=== PATIENT | female | born 1945 | race Caucasian/White ===

== ENCOUNTER 2017-03-16 06:40 | Observation (INO) | payer MEDICARE, MEDICAID ==
[2017-03-16] VITALS (8 sets, daily range): BP systolic 135–195; BP diastolic 66–91; PULSE 68–102; RESP 16–21; TEMP 97.6–98.5; O2SAT 94–100
[~2017-03-16] VITALS: Ht 152.4 cm; Wt 40.0 kg
[2017-03-16] MEDS ORDERED: SODIUM CHLOR 0.9% 1000 ML INJ 1,000 ML IV ONE (07:13)
--- NOTE | 2017-03-16 07:16 | PD ---
HPI Chief Complaint: Cold / Flu Symptoms Time Seen by Provider: 07:13 Travel History International Travel<30 days: No Contact w/Intl Traveler<30days: No Traveled to known affect area: No History of Present Illness HPI 71-year-old female patient presents to the ER today with 6 days' history of fevers, cold symptoms, cough, chest discomfort, malaise, burning on urination and lower abdominal discomfort. She denies any coughing, shortness of breath, chest pains, or any other symptoms. She states that she thinks the symptoms began when she started turning of her old air conditioning on. Modifying Factors: None Associated Signs & Symptoms: Fever, malaise, burning on urination, lower abdominal discomfort, cough, cold symptoms, chest discomfort Risk Factors: None PFSH Past Medical History Medical History: Denies Significant Hx Tetanus Vaccination: Never Vaccinated Influenza Vaccination: No Past Surgical History Abdominal Surgery: Yes (HERNIA REPAIR) Social History Alcohol Use: No Tobacco Use: No Substance Use: No Allergies-Medications (Allergen,Severity, Reaction): Coded Allergies: No Known Allergies (Unverified , 03/16/17) Reported Meds & Prescriptions Reported Meds & Active Scripts Active No Active Prescriptions or Reported Medications Review of Systems Except as stated in HPI: all other systems reviewed are Neg Physical Exam Narrative GENERAL: Well-developed elderly white female patient currently in mild distress. Awake and oriented 3. SKIN: Focused skin assessment warm/dry. HEAD: Atraumatic. Normocephalic. EYES: Pupils equal and round. No scleral icterus. No injection or drainage. ENT: No nasal bleeding or discharge. Mucous membranes pink and moist. NECK: Trachea midline. No JVD. CARDIOVASCULAR: Regular rate and rhythm. No murmur appreciated. RESPIRATORY: No accessory muscle use. Clear to auscultation. Breath sounds equal bilaterally. GASTROINTESTINAL: Abdomen soft, mild suprapubic tenderness without guarding or rebound, nondistended. Hepatic and splenic margins not palpable. MUSCULOSKELETAL: No obvious deformities. No clubbing. No cyanosis. No edema. NEUROLOGICAL: Awake and alert. No obvious cranial nerve deficits. Motor grossly within normal limits. Normal speech. PSYCHIATRIC: Appropriate mood and affect; insight and judgment normal. Data Data Last Documented VS Vital Signs Date Time Temp Pulse Resp B/P Pulse Ox O2 Delivery O2 Flow Rate FiO2 03/16/17 07:17 93 16 169/90 94 Room Air 03/16/17 06:43 98.2 Orders Electrocardiogram (03/16/17 06:46) Complete Blood Count With Diff (03/16/17 07:13) Comprehensive Metabolic Panel (03/16/17 07:13) Lactic Acid Sepsis Protocol (03/16/17 07:13) Urinalysis - C+S If Indicated (03/16/17 07:13) Influenzae A/B Antigen (03/16/17 07:13) Blood Culture (03/16/17 07:13) Legionella Urinary Antigen (03/16/17 07:13) Chest, Single Ap (03/16/17 07:13) Blood Glucose (03/16/17 07:13) Ecg Monitoring (03/16/17 07:13) Iv Access Insert/Monitor (03/16/17 07:13) Oximetry (03/16/17 07:13) Oxygen Administration (03/16/17 07:13) Sodium Chlor 0.9% 1000 Ml Inj (Ns 1000 M (03/16/17 07:13) Ckmb (Isoenzyme) Profile (03/16/17 07:24) Troponin I (03/16/17 07:24) Urine Culture (03/16/17 07:20) CKMB (03/16/17 07:20) CKMB% (03/16/17 07:20) Ns + Kcl 20 Meq Inj (Ns + Kcl 20 Meq Inj (03/16/17 09:15) Potassium Chloride (Kcl) (03/16/17 09:15) Levofloxacin 750 Mg Premix Inj (Levaquin (03/16/17 09:07) Labs Laboratory Tests Test 03/16/17 03/16/17 07:20 07:30 Urine Color LIGHT-YELLOW Urine Turbidity CLEAR Urine pH 7.5 Urine Specific [place] 1.005 Urine Protein NEG mg/dL Urine Glucose (UA) NEG mg/dL Urine Ketones TRACE mg/dL Urine Occult Blood SMALL Urine Nitrite POS Urine Bilirubin NEG Urine Urobilinogen LESS THAN 2.0 MG/DL Urine Leukocyte Esterase TRACE Urine RBC 5 /hpf Urine WBC 2 /hpf Urine Bacteria OCC /hpf Microscopic Urinalysis Comment CATH-CULTURE IND Total Creatine Kinase 352 U/L Creatine Kinase MB 2.9 NG/ML Creatine Kinase MB % 0.8 % Troponin I LESS THAN 0.02 NG/ML White Blood Count 4.9 TH/MM3 Red Blood Count 3.99 MIL/MM3 Hemoglobin 12.1 GM/DL Hematocrit 36.1 % Mean Corpuscular Volume 90.5 FL Mean Corpuscular Hemoglobin 30.4 PG Mean Corpuscular Hemoglobin 33.6 % Concent Red Cell Distribution Width 13.4 % Platelet Count 200 TH/MM3 Mean Platelet Volume 9.1 FL Neutrophils (%) (Auto) 72.5 % Lymphocytes (%) (Auto) 19.5 % Monocytes (%) (Auto) 7.2 % Eosinophils (%) (Auto) 0.2 % Basophils (%) (Auto) 0.6 % Neutrophils # (Auto) 3.5 TH/MM3 Lymphocytes # (Auto) 0.9 TH/MM3 Monocytes # (Auto) 0.4 TH/MM3 Eosinophils # (Auto) 0.0 TH/MM3 Basophils # (Auto) 0.0 TH/MM3 CBC Comment DIFF FINAL Differential Comment Sodium Level 141 MEQ/L Potassium Level 2.7 MEQ/L Chloride Level 105 MEQ/L Carbon Dioxide Level 25.6 MEQ/L Anion Gap 10 MEQ/L Blood Urea Nitrogen 15 MG/DL Creatinine 0.85 MG/DL Estimat Glomerular Filtration 66 ML/MIN Rate Random Glucose 109 MG/DL Lactic Acid Level 1.3 mmol/L Calcium Level 7.9 MG/DL Total Bilirubin 0.6 MG/DL Aspartate Amino Transf 32 U/L (AST/SGOT) Alanine Aminotransferase 25 U/L (ALT/SGPT) Alkaline Phosphatase 52 U/L Total Protein 6.9 GM/DL Albumin 3.1 GM/DL MDM Medical Decision Making Medical Screen Exam Complete: Yes Emergency Medical Condition: Yes Medical Record Reviewed: Yes Interpretation(s) Laboratory Tests Test 03/16/17 03/16/17 07:20 07:30 Urine Ketones TRACE mg/dL (NEG) Urine Occult Blood SMALL (NEG) Urine Nitrite POS (NEG) Urine Leukocyte Esterase TRACE (NEG) Urine RBC 5 /hpf (0-3) Urine Bacteria OCC /hpf (NONE) Total Creatine Kinase 352 U/L (26-192) Troponin I LESS THAN 0.02 NG/ML (0.02-0.05) Red Blood Count 3.99 MIL/MM3 (4.00-5.30) Neutrophils (%) (Auto) 72.5 % (16.0-70.0) Lymphocytes # (Auto) 0.9 TH/MM3 (1.0-4.8) Potassium Level 2.7 MEQ/L (3.5-5.1) Estimat Glomerular Filtration 66 ML/MIN (>89) Rate Random Glucose 109 MG/DL (74-106) Calcium Level 7.9 MG/DL (8.5-10.1) Albumin 3.1 GM/DL (3.4-5.0) Differential Diagnosis Fevers, urinary symptoms, lower abdominal discomfort, malaise, cough, chest discomfortUTI versus sepsis versus pneumonia versus viral syndrome Narrative Course Lab work shows significant hypokalemia and UTI. IV potassium and by mouth potassium was initiated in the ER and IV antibiotics were initiated. At this point, case is discussed with family practice resident service for admission. Diagnosis Primary Impression: Hypokalemia Additional Impression: UTI (urinary tract infection) Admitting Information Admitting Physician Requests: Admit Scripts No Active Prescriptions or Reported Meds Siomara Gibbs MD Mar 16, 2017 07:16
--- NOTE | 2017-03-16 07:55 | RADRPT ---
EXAM DATE/TIME: 03/16/2017 07:33 [facility] COMPARISON: No previous studies available for comparison. INDICATIONS : Fever. MEDICAL HISTORY : None. SURGICAL HISTORY : None. ENCOUNTER: Initial ACUITY: 1 day PAIN SCORE: 0/10 LOCATION: Bilateral chest FINDINGS: A single view of the chest demonstrates the lungs to be symmetrically aerated without evidence of mas s, infiltrate or effusion. The cardiomediastinal contours are unremarkable. There is a dextrocurvatu re of the thoracolumbar region. CONCLUSION: No acute disease. Carlos Diaz MD on March 16, 2017 at 7:53 Board Certified Radiologist. This report was verified electronically.
[2017-03-16 08:07] LABS: AUTOMATED NEUTROPHIL # 3.5 TH/MM3 (1.8-7.7); BASOPHIL % 0.6 % (0.0-2.0); EOSINOPHIL % 0.2 % (0.0-4.0); HEMATOCRIT 36.1 % (35.0-46.0); HEMO FLAGS DIFF FINAL; LYMPH % 19.5 % (9.0-44.0); LYMPHOCYTE # 0.9 TH/MM3 (1.0-4.8); MEAN CELL VOLUME 90.5 FL (80.0-100.0); MEAN CORPUSCULAR HEMOGLOBIN 30.4 PG (27.0-34.0); MEAN CORPUSCULAR HGB CONC 33.6 % (32.0-36.0); MONO % 7.2 % (0.0-8.0); NEUT % 72.5 % (16.0-70.0); PLATELET COUNT 200 TH/MM3 (150-450); RED BLOOD COUNT 3.99 MIL/MM3 (4.00-5.30); RED CELL DISTRIBUTION WIDTH 13.4 % (11.6-17.2); WHITE BLOOD COUNT 4.9 TH/MM3 (4.0-11.0)
[2017-03-16 08:08] LABS: BACTERIA, URINE OCC /hpf; BLOOD, URINE SMALL (NEG); GLUCOSE,URINE NEG (NEG); KETONE, URINE TRACE mg/dL (NEG); PH, URINE 7.5 (5.0-8.5); URINE COLOR LIGHT-YELLOW (YELLW/STRAW)
[2017-03-16 08:09] LABS: COMMENT (UR) CATH-CULTURE IND; CULTURE IF INDICATED CATH CULTURE IND; NITRITE,URINE POS (NEG)
[2017-03-16 08:29] LABS: CREATINE KINASE 352 U/L (26-192)
[2017-03-16 08:33] LABS: ALKALINE PHOSPHATASE 52 U/L (45-117); ALT (GPT) 25 U/L (10-53); ANION GAP 10 MEQ/L (5-15); AST (GOT) 32 U/L (15-37); BICARBONATE 25.6 MEQ/L (21.0-32.0); BLOOD UREA NITROGEN 15 MG/DL (7-18); CHLORIDE 105 MEQ/L (98-107); GLOMERULAR FILTRATION RATE 66 ML/MIN (>89); SODIUM (NA) 141 MEQ/L (136-145); TOTAL BILIRUBIN ADULT 0.6 MG/DL (0.2-1.0)
[2017-03-16 08:34] LABS: POTASSIUM 2.7 MEQ/L (3.5-5.1)
[2017-03-16 08:42] LABS: CKMB 2.9 NG/ML (0.5-3.6)
[2017-03-16] MEDS ORDERED: LEVOFLOXACIN 750 MG PREMIX INJ 150 ML IV STA (09:07)
[2017-03-16] MEDS ORDERED: POTASSIUM CHLORIDE 10 MEQ CONTROLLED RELEASE TAB PO ONE ×2 (09:15→19:15)
[2017-03-16] MEDS ORDERED: NS + KCL 20 MEQ INJ 1,000 ML IV ONE (09:15)
--- NOTE | 2017-03-16 10:10 | HHI.HP ---
HPI Service Family Medicine Primary Care Physician No Primary Care Physician Admission Diagnosis hypokalemia/UTI Diagnoses: International Travel<30 Days: No Contact w/Intl Traveler<30days: No Known Affected Area: No History of Present Illness Ms. Mart is a 71 y/o F with no significant past medical history presenting with fever, cough with SOB, and dysuria. She states that on March 09 she started running a fever up to 101 with a productive cough when she started using her air conditioner in her apartment. Since that time she endorses severe coughing episodes to the point where she felt like she could "pass out." Due to the cough she has started experiencing midsternal chest pain without radiation or diaphoresis. She is also experience some mild shortness of breath due to her constant cough. For her fever she had started taking Tylenol, however her fever did not respond and therefore presented to the ER for further evaluation. Per the ER physician's report she has been complaining of dysuria and lower abdominal discomfort. Nursing staff also notes she has been urinating with increased frequency and urgency since arriving to the ER. However upon the medical team's interview, the patient denies any urinary symptoms at this time including suprapubic tenderness, back pain, dysuria, or urgency. Her only other complaints was multiple episodes of diarrhea since starting Tylenol and a back skin lesion she believes is melanoma. (Guillermo Manzanares MD R1) Review of Systems Constitutional: COMPLAINS OF: Fever, Chills Endocrine: COMPLAINS OF: Polyuria Eyes: DENIES: Blurred vision Ears, nose, mouth, throat: DENIES: Throat pain, Running Nose Respiratory: COMPLAINS OF: Cough, Shortness of breath Cardiovascular: COMPLAINS OF: Chest pain, DENIES: Palpitations Gastrointestinal: COMPLAINS OF: Diarrhea, DENIES: Abdominal pain, Nausea, Vomiting Genitourinary: COMPLAINS OF: Urinary frequency, Urgency, DENIES: Dysuria Musculoskeletal: DENIES: Joint pain Integumentary: COMPLAINS OF: Rash Hematologic/lymphatic: DENIES: Lymphadenopathy Immunologic/allergic: DENIES: Urticaria Neurologic: DENIES: Headache Psychiatric: DENIES: Mood changes (Guillermo Manzanares MD R1) Past Family Social History Past Medical History Denies significant past medical history Past Surgical History R inguinal hernia repair (Guillermo Manzanares MD R1) Allergies: Coded Allergies: No Known Allergies (Unverified , 03/16/17) Family History Mother - emphysema Father - unknown Brother - possible HI, unknown Denies any other significant FMHx Social History Lives at home by herself in [address]. Currently on SSI and unemployed. Smoke - Denies smoking history Alcohol - Occasionally, last drink was couple of weeks ago Illicit Drugs - Denies illicit drugs (Guillermo Manzanares MD R1) Physical Exam Vital Signs Vital Signs Date Time Temp Pulse Resp B/P Pulse Ox O2 Delivery O2 Flow Rate FiO2 03/16/17 07:17 93 16 169/90 94 Room Air 03/16/17 06:43 98.2 102 18 195/91 98 Physical Exam CONSTITUTIONAL/GEN: Well-developed, well-nourished 71-year-old female in NAD. EYES: Conjunctiva normal, PERRLA, EOMI. ENT: Mouth and oropharynx within normal limits. No lower teeth. NECK: Supple. No thyromegaly, LAD, or JVD appreciated LUNGS: Clear to auscultation bilaterally with no CRW. No increased work of breathing. CARDIOVASCULAR: Regular rate and rhythm with no MGR. GI/ABD: Soft, nontender with positive bowel sounds. No organomegaly appreciated. : No CVA tenderness. NEURO: No focal deficits. SKIN: Color normal, no rashes noted. Seborrheic keratoses on back. HEME/LYMPH: No bruising, petechia or significant adenopathy MUSC: Back is normal in appearance. Extremities are normal in appearance. PSYCH/MENTAL STATUS: Alert and oriented x 3. Laboratory Laboratory Tests Test 03/16/17 03/16/17 07:20 07:30 Urine Color LIGHT-YELLOW Urine Turbidity CLEAR Urine pH 7.5 Urine Specific [place] 1.005 Urine Protein NEG Urine Glucose (UA) NEG Urine Ketones TRACE Urine Occult Blood SMALL Urine Nitrite POS Urine Bilirubin NEG Urine Urobilinogen LESS THAN 2.0 Urine Leukocyte Esterase TRACE Urine RBC 5 Urine WBC 2 Urine Bacteria OCC Microscopic Urinalysis Comment CATH-CULTURE IND Total Creatine Kinase 352 Creatine Kinase MB 2.9 Creatine Kinase MB % 0.8 Troponin I LESS THAN 0.02 White Blood Count 4.9 Red Blood Count 3.99 Hemoglobin 12.1 Hematocrit 36.1 Mean Corpuscular Volume 90.5 Mean Corpuscular Hemoglobin 30.4 Mean Corpuscular Hemoglobin 33.6 Concent Red Cell Distribution Width 13.4 Platelet Count 200 Mean Platelet Volume 9.1 Neutrophils (%) (Auto) 72.5 Lymphocytes (%) (Auto) 19.5 Monocytes (%) (Auto) 7.2 Eosinophils (%) (Auto) 0.2 Basophils (%) (Auto) 0.6 Neutrophils # (Auto) 3.5 Lymphocytes # (Auto) 0.9 Monocytes # (Auto) 0.4 Eosinophils # (Auto) 0.0 Basophils # (Auto) 0.0 CBC Comment DIFF FINAL Differential Comment Sodium Level 141 Potassium Level 2.7 Chloride Level 105 Carbon Dioxide Level 25.6 Anion Gap 10 Blood Urea Nitrogen 15 Creatinine 0.85 Estimat Glomerular Filtration 66 Rate Random Glucose 109 Lactic Acid Level 1.3 Calcium Level 7.9 Total Bilirubin 0.6 Aspartate Amino Transf 32 (AST/SGOT) Alanine Aminotransferase 25 (ALT/SGPT) Alkaline Phosphatase 52 Total Protein 6.9 Albumin 3.1 Date/Time Procedure Status Source Growth 03/16/17 07:35 Influenza Types A,B Antigen (NICHOLAS) - Final Complete Nasal Washing NEGATIVE FOR FLU A AND B ANTIGEN.... 03/16/17 07:30 Aerobic Blood Culture Received Blood Peripheral Pending 03/16/17 07:30 Anaerobic Blood Culture Received Blood Peripheral Pending 03/16/17 07:20 Urine Culture Received Urine Catheterized Urine Pending 03/16/17 07:20 Legionella Antigen - Final Complete Urine Clean Catch PRESUMPTIVE NEGATIVE FOR LEGIONELLA P... (Guillermo Manzanares MD R1) Result Diagram: 03/16/1772903/16/17729 Imaging Last 72 hours Impressions Chest X-Ray 03/16/17712 Signed Impressions: Service Date/Time: Thursday, March 16, 2017 07:33 - CONCLUSION: No acute disease. Carlos Diaz MD (Guillermo Manzanares MD R1) Assessment and Plan Assessment and Plan Ms. Mart is a 71 y/o F with no significant past medical history presenting with fever, cough with SOB, and dysuria found to have a UTI and hypokalemia. She will be admitted for observation and medical management of her hypokalemia and UTI. Code Status Full Code Discussed Condition With Dr. Gibbs, ER Physician Dr. Trenton Roach (Guillermo Manzanares MD R1) Attending Attestation Patient seen and examined. Case reviewed and discussed with the resident team. Agree with plan of care as discussed with me and documented in the resident note. (Ngozi Chowdhury MD) Problem List: (1) UTI (urinary tract infection) Status: Acute Plan: Patient presented with fevers, dysuria, and urinary urgency found to have urinalysis concerning for possible UTI. CBC: WBC 4.9 with 72.5 neutrophils UA: Trace ketones, small occult blood, nitrites positive, trace leukocyte esterase, occasional bacteria Urine culture: Pending Urinary catheter inserted per ER staff due to frequency and urgency Strict I/Os Medications: Levofloxacin 750 mg daily (2) Hypokalemia Status: Acute Plan: Patient found to be hypokalemic on complete metabolic panel. CMP: Potassium 2.7, otherwise within normal limits Repeat BMP at 1999 Medications: Normal saline + 20 mEq KCl at 250 mL per hour Potassium 30 mEq once in ER Potassium 40 mEq PO x1 (3) Nutrition, metabolism, and development symptoms Status: Acute Plan: Fluids: 2 L normal saline given in ER, currently tolerating fluids well mouth Diet: Regular diet as tolerated Electrolytes: Hypokalemia as above, continue to monitor Prophylaxis: Tylenol when necessary for fever, constipation regimen, Zofran when necessary for nausea or vomiting, Tessalon when necessary for cough, Imodium when necessary for diarrhea, clonidine when necessary for BP >180/100 (4) No contraindication to deep vein thrombosis (DVT) prophylaxis Status: Acute Plan: Pharmacological DVT prophylaxis held due to probable short hospital stay , medical team will initiate prophylaxis pending longer clinical course SCD/TEDs (Guillermo Manzanares MD R1) Guillermo Manzanares MD R1 Mar 16, 2017 10:10 Ngozi Chowdhury MD Mar 16, 2017 20:32
[2017-03-16] MEDS ORDERED: BISACODYL 10 MG SUPP RECTAL PRN (12:00)
[2017-03-16] MEDS ORDERED: NALOXONE HCL 0.4 MG/ML AMP IV PRN (12:00)
[2017-03-16] MEDS ORDERED: MAGNESIUM HYDROXIDE SUSP 30 ML CUP PO PRN (12:00)
[2017-03-16] MEDS ORDERED: SODIUM CHLORIDE 0.9% FLUSH 10 ML FLUSH IV FLUSH PRN (12:00)
[2017-03-16] MEDS: SODIUM CHLORIDE 0.9% FLUSH 10 ML FLUSH IV FLUSH SCH ×2 (12:00→20:11)
[2017-03-16] MEDS ORDERED: SENNOSIDES 8.6 MG TAB PO PRN (12:00)
[2017-03-16] MEDS ORDERED: ACETAMINOPHEN 325 MG TAB PO PRN (12:00)
[2017-03-16] MEDS ORDERED: ONDANSETRON ODT 4 MG TAB PO PRN (12:00)
[2017-03-16] MEDS ORDERED: LACTULOSE SYRUP 20 GM/30 ML CUP PO PRN (12:00)
--- NOTE | 2017-03-16 12:16 | HHI.FPPN ---
Subjective Remarks Pt. seen, examined and discussed with the medicine team. This is a 71 yo female, previously well until approximately one week ago when she developed a fever with some chills. She turned on the AC and began severe coughing to the point of feeling as though she was going to pass out. cough was productive of sputum. Per ED physician pt. has been complaining of dysuria and lower abdominal discomfort. See H&P for this observation admission for additional historical details. When we speak with the patient, she denies any dysuria, urgency, back pain, suprapubic pain. Wants to go home. Takes no meds, nonsmoker, rare etoh. Lives alone in an apartment, cares for herself She is . Thinks she has a melanoma on her back; hasn't seen a physician in many years. Objective Vitals Vital Signs Date Time Temp Pulse Resp B/P Pulse Ox O2 Delivery O2 Flow Rate FiO2 03/16/17 07:17 93 16 169/90 94 Room Air 03/16/17 06:43 98.2 102 18 195/91 98 Result Diagram: 03/16/1730 03/16/17 0730 Other Results Laboratory Tests Test 03/16/17 03/16/17 07:20 07:30 Urine Ketones TRACE mg/dL Urine Occult Blood SMALL Urine Nitrite POS Urine Leukocyte Esterase TRACE Urine RBC 5 /hpf Urine Bacteria OCC /hpf Total Creatine Kinase 352 U/L Troponin I LESS THAN 0.02 NG/ML Red Blood Count 3.99 MIL/MM3 Neutrophils (%) (Auto) 72.5 % Lymphocytes # (Auto) 0.9 TH/MM3 Potassium Level 2.7 MEQ/L Estimat Glomerular Filtration 66 ML/MIN Rate Random Glucose 109 MG/DL Calcium Level 7.9 MG/DL Albumin 3.1 GM/DL Imaging Last Impressions Chest X-Ray 03/16/17 0713 Signed Impressions: Service Date/Time: Thursday, March 16, 2017 07:33 - CONCLUSION: No acute disease. Carlos Diaz MD Objective Remarks O. CONSTITUTIONAL/GEN: normally nourished, in NAD. EYES: conjunctiva normal, PERRLA, EOMI. ENT: Mouth and pharynx normal. No lower teeth. NECK: supple LUNGS: clear A-P, respiratory effort is normal. CARDIOVASCULAR: RR without murmur or gallop. No significant edema. GI/ABD: soft without masses, without organomegaly. BS + : no CVA tenderness NEURO: No focal deficits. SKIN: color normal, no rashes noted. Seborrheic keratoses on back. HEME/LYMPH: no bruising, petechia or significant adenopathy MUSC: back is normal in appearance. Extremities are normal in appearance. PSYCH/MENTAL STATUS: Alert and oriented x 3. A/P Assessment and Plan 71 yo female with resolving URI, essentially asymptomatic UTI and hypokalemia. Attending Attestation Patient seen and examined. Case reviewed and discussed with the resident team. Agree with plan of care as discussed with me and documented in the resident note. Ngozi Chowdhury MD Mar 16, 2017 12:16
--- NOTE | 2017-03-16 15:55 | EKG ---
Date Performed: 03/16/2017 Time Performed: 06:46:30 PTAGE: 71 years EKG: SINUS TACHYCARDIA BASELINE ARTIFACT INCOMPLETE RIGHT BUNDLE BRANCH BLOCK MODERATE ST DEPRES LEONCIO ABNORMAL ECG NO PREVIOUS TRACING DOCTOR: Jovany Arzola Interpretating Date/Time 03/16/2017 15:53:40
[2017-03-16] MEDS ORDERED: LOPERAMIDE HCL 2 MG CAP PO PRN (18:15)
[2017-03-16] MEDS ORDERED: BENZONATATE 100 MG CAP PO PRN (18:15)
--- NOTE | 2017-03-16 19:11 | HHI.DCPOC ---
Discharge Care Plan Diagnosis: (1) Hypokalemia (2) UTI (urinary tract infection) Goals to Promote Your Health * To prevent worsening of your condition and complications * To maintain your health at the optimal level Directions to Meet Your Goals Take your medications as prescribed Follow your dietary instruction Follow activity as directed Keep your appointments as scheduled Take your immunizations and boosters as scheduled If your symptoms worsen call your PCP, if no PCP go to Urgent Care Center or Emergency Room Smoking is Dangerous to Your Health. Avoid second hand smoke Call the 24-hour hour crisis hotline for domestic abuse at Guillerom Manzanares MD R1 Mar 16, 2017 19:11
[2017-03-16] MEDS ORDERED: LEVA750T9 PO ×2 (19:12→19:14)
[2017-03-16] MEDS ORDERED: cloNIDine HCL 0.1 MG TAB PO PRN (19:15)
[2017-03-16] MEDS ORDERED: hydrOXYzine HCL 25 MG TAB PO PRN (19:30)
[2017-03-16] MEDS ORDERED: ACETAMINOPHEN 500 MG CPLT PO PRN (19:30)
[2017-03-16 19:39] LABS: BICARBONATE 27.2 MEQ/L (21.0-32.0); POTASSIUM 3.2 MEQ/L (3.5-5.1)
[2017-03-16] MEDS: DOCUSATE SODIUM 50 MG/SENNA 8.6 MG TAB PO SCH (20:11)
[2017-03-16 21:03] LABS: MAGNESIUM 1.9 MG/DL (1.5-2.5)
[2017-03-17 01:52] VITALS: BP 164/78; PULSE 67; RESP 16; TEMP 98.4; O2SAT 96
[2017-03-17 05:07] VITALS: BP 132/69; PULSE 74; RESP 19; TEMP 98.4; O2SAT 94
[2017-03-17] MEDS ORDERED: BACT800T5 PO (07:07)
[2017-03-17 07:27] LABS: AUTOMATED NEUTROPHIL # 4.2 TH/MM3 (1.8-7.7); BASOPHIL % 0.5 % (0.0-2.0); EOSINOPHIL # 0.1 TH/MM3 (0-0.4); EOSINOPHIL % 1.2 % (0.0-4.0); HEMATOCRIT 39.2 % (35.0-46.0); HEMO FLAGS DIFF FINAL; LYMPH % 28.3 % (9.0-44.0); LYMPHOCYTE # 1.9 TH/MM3 (1.0-4.8); MEAN CELL VOLUME 89.6 FL (80.0-100.0); MEAN CORPUSCULAR HEMOGLOBIN 30.3 PG (27.0-34.0); MEAN CORPUSCULAR HGB CONC 33.8 % (32.0-36.0); MONO % 6.4 % (0.0-8.0); NEUT % 63.6 % (16.0-70.0); PLATELET COUNT 241 TH/MM3 (150-450); RED BLOOD COUNT 4.37 MIL/MM3 (4.00-5.30); RED CELL DISTRIBUTION WIDTH 13.3 % (11.6-17.2); WHITE BLOOD COUNT 6.6 TH/MM3 (4.0-11.0)
[2017-03-17 07:57] LABS: ALT (GPT) 24 U/L (10-53); ANION GAP 10 MEQ/L (5-15); AST (GOT) 25 U/L (15-37); BICARBONATE 24.1 MEQ/L (21.0-32.0); BLOOD UREA NITROGEN 7 MG/DL (7-18); CHLORIDE 107 MEQ/L (98-107); GLOMERULAR FILTRATION RATE 64 ML/MIN (>89); POTASSIUM 3.2 MEQ/L (3.5-5.1); SODIUM (NA) 141 MEQ/L (136-145)
[2017-03-17 08:00] LABS: ALKALINE PHOSPHATASE 53 U/L (45-117); TOTAL BILIRUBIN ADULT 0.7 MG/DL (0.2-1.0)
[2017-03-17 08:15] VITALS: O2SAT 98
[2017-03-17 08:16] VITALS: BP 137/67; PULSE 83; RESP 18; TEMP 98; O2SAT 95
[2017-03-17] MEDS: SODIUM CHLORIDE 0.9% FLUSH 10 ML FLUSH IV FLUSH SCH (08:34)
[2017-03-17] MEDS: DOCUSATE SODIUM 50 MG/SENNA 8.6 MG TAB PO SCH (08:35)
[2017-03-17] MEDS ORDERED: SULFAMETHOXAZOLE-TRIMETHOPRIM DS 800-160 MG TAB PO SCH (09:00)
[2017-03-17] MEDS ORDERED: LEVOFLOXACIN 750 MG TAB PO SCH (09:00)
[2017-03-17] MEDS ORDERED: POTASSIUM CHLORIDE 10 MEQ CAP PO SCH (09:00)
[2017-03-17] MEDS ORDERED: CIPR5SUS PO (09:48)
--- NOTE | 2017-03-17 09:49 | HHI.FPPN ---
Subjective Remarks Patient seen and examined this morning by medical team. No acute events overnight with VSS. Patient reports she feels "100% better" and is very grateful for the care she has received. She has no complaints this morning and denies any fevers, chills, shortness of breath, chest pain, dysuria, abdominal pain, or calf tenderness. (Guillermo Manzanares MD R1) Objective Vitals Vital Signs Date Time Temp Pulse Resp B/P Pulse Ox O2 Delivery O2 Flow Rate FiO2 03/17/17 08:16 98.0 83 18 137/67 95 03/17/17 08:15 98 21 03/17/17 05:07 98.4 74 19 132/69 94 03/17/17 01:52 98.4 67 16 164/78 96 03/16/17 21:10 98.5 87 18 171/80 96 03/16/17 20:09 96 21 03/16/17 15:40 97.6 75 18 155/72 96 03/16/17 12:18 68 21 135/66 100 Room Air 03/16/17 12:08 98 21 03/16/17 10:00 70 18 152/78 95 Room Air I/O 03/16/17 03/16/17 03/16/17 03/17/17 03/17/17 03/17/17 07:00 15:00 23:00 07:00 15:00 23:00 Output Total 500 ml 750 ml Balance -500 ml -750 ml Output Urine Total 500 ml 750 ml # Voids 1 (Guillermo Manzanares MD R1) Result Diagram: 03/17/17 0638 03/17/17 0638 Objective Remarks CONSTITUTIONAL/GEN: Well-developed, well-nourished 71-year-old female lying in bed in [facility]. HEENT: Atraumatic, normocephalic with EOMI. MMM. No JVD or LAD appreciated LUNGS: Clear to auscultation bilaterally with no CRW. No increased work of breathing. CARDIOVASCULAR: Regular rate and rhythm with no MGR. GI/ABD: Soft, nontender with positive bowel sounds. No organomegaly appreciated. : No CVA tenderness. Schwarz catheter in place with appropriate nonhemorrhagic urine and reservoir. SKIN: Color normal, no rashes noted. Seborrheic keratoses on back. HEME/LYMPH: No bruising, petechia or significant adenopathy MUSC: Back is normal in appearance. Extremities are normal in appearance. PSYCH/MENTAL STATUS: Alert and oriented x 3. (Guillermo Manzanares MD R1) A/P Assessment and Plan Ms. Mart is a 71 y/o F with no significant past medical history presenting with fever, cough with SOB, and dysuria found to have a UTI and hypokalemia. She will be admitted for observation and medical management of her hypokalemia and UTI. Discharge Planning Patient to be discharged home today. (Guillermo Manzanares MD R1) Attending Attestation Patient seen and examined. Case reviewed and discussed with the resident team. Agree with plan of care as discussed with me and documented in the resident note. (Ngozi Chowdhury MD) Problem List: (1) UTI (urinary tract infection) Status: Acute Plan: Patient presented with fevers, dysuria, and urinary urgency found to have urinalysis concerning for possible UTI. CBC: WBC 4.9 with 72.5 neutrophils UA: Trace ketones, small occult blood, nitrites positive, trace leukocyte esterase, occasional bacteria Urine culture: Gram-negative chip Legionella antigen: Negative Blood culture: Negative to date Urinary catheter inserted per ER staff due to frequency and urgency. Schwarz to be removed with voiding trial. Strict I/Os Medications: Levofloxacin 750 mg daily Patient to be discharged home on ciprofloxacin 500 mg by mouth twice a day ( liquid) Follow-up BMP and UA within one week Patient follow-up with PCP in 1 week, given information on [facility] for future follow-up (2) Hypokalemia Status: Acute Plan: Patient found to be hypokalemic on complete metabolic panel. CMP 03/17:3.2 Medications: Normal saline + 20 mEq KCl at 250 mL per hour Potassium 30 mEq once in ER Potassium 40 mEq PO x2 Patient educated to increase potassium in diet such eating bananas, dates, EDC to improve hypokalemia (3) Nutrition, metabolism, and development symptoms Status: Acute Plan: Fluids: 2 L normal saline given in ER, currently tolerating fluids well mouth Diet: Regular diet as tolerated Electrolytes: Hypokalemia as above, continue to monitor Prophylaxis: Tylenol when necessary for fever, constipation regimen, Zofran when necessary for nausea or vomiting, Tessalon when necessary for cough, Imodium when necessary for diarrhea, clonidine when necessary for BP >180/100 (4) No contraindication to deep vein thrombosis (DVT) prophylaxis Status: Acute Plan: Pharmacological DVT prophylaxis held due to probable short hospital stay , medical team will initiate prophylaxis pending longer clinical course SCD/TEDs (Guillermo Manzanares MD R1) Guillermo Manzanares MD R1 Mar 17, 2017 09:49 Ngozi Chowdhury MD Mar 17, 2017 19:20
[2017-03-17 11:24] VITALS: BP 133/70; PULSE 81; RESP 16; TEMP 98; O2SAT 98
== END 2017-03-17 17:22 | disposition home or self-care (01) ==
LOC: NEPE 06:40 → NEDA 09:41 → NEPHCDU 13:07
PROVIDERS: ADMIT Family Medicine; ATTEND Family Medicine
DX: N39.0 Urinary tract infection, site not specified (principal); E87.6 Hypokalemia; R07.89 Other chest pain; R05 Cough; R19.7 Diarrhea, unspecified
CPT/HCPCS: 71010; 80048; 80053; 81001; 82550; 82552; 83605; 83735; 84484; 85025; 87040; 87077; 87086; 87186; 87449; 87804; 93005; 96360; 96365; 99285; G0378; J1956; J3480; J7030